=== PATIENT | male | born 1965 | race Hispanic/Latino ===

== ENCOUNTER 2017-03-02 15:06 | Inpatient (IN) | payer MEDICARE, MEDICAID ==
[2017-03-02 15:06] VITALS: BMI 32.5
[2017-03-02] MEDS ORDERED: Sodium Chloride 0.9% 1,000 ML IV STA (15:28)
--- NOTE | 2017-03-02 15:39 | ED PDOC ---
Syncope/Near Syncope/Dizzyness Time Seen by Provider: 03/02/17 15:16 Chief Complaint (Nursing): Syncope Chief Complaint (Provider): syncope History Per: Patient History/Exam Limitations: no limitations Onset/Duration Of Symptoms: Mins (prior to arrival ) Current Symptoms Are (Timing): Still Present Activity At Onset Of Symptoms: Walking Additional Complaint(s): Derek Gutierrez is a 51 year old male, with a previous medical history of bipolar disorder and diabetes, who presents to the ED via EMS after a syncopal episode in front of the court house prior to arrival while walking from the pharmacy to bulk picker his medications. Patient reports to feeling dizzy before syncopal episode but states symptoms spontaneously resolved. Patient was discharged from rehab yesterday for a shoulder injury he sustained resulting from a previous fall. Patient denies any current dizziness, chest pain, headache , nausea, vomiting, diarrhea, abdominal pain, vision changes or focal weakness. PMD: none provided Past Medical History Reviewed: Historical Data, Nursing Documentation, Vital Signs Vital Signs: Last Vital Signs Temp 95.9 F L 03/02/17 15:08 Pulse 125 H 03/02/17 15:08 Resp 16 03/02/17 15:08 BP 77/39 L 03/02/17 15:08 Pulse Ox 98 03/02/17 15:08 - Medical History PMH: Bipolar Disorder, Diabetes Denies: Chronic Kidney Disease - Surgical History Surgical History: No Surg Hx - Family History Family History: States: Unknown Family Hx - Home Medications Home Medications: Ambulatory Orders Medication Instructions Recorded Atorvastatin [Lipitor] 20 mg PO HS 03/02/17 Paliperidone Palmitate [Invega 156 mg Q30D 03/02/17 Sustenna] metFORMIN [glucOPHAGE] 850 mg PO BID 03/02/17 - Allergies Allergies/Adverse Reactions: Allergies Allergy/AdvReac Type Severity Reaction Status Date / Time No Known Allergies Allergy Verified 01/23/17 07:46 Review of Systems ROS Statement: Except As Marked, All Systems Reviewed And Found Negative Eyes: Negative for: Vision Change Cardiovascular: Negative for: Chest Pain Gastrointestinal: Negative for: Nausea, Vomiting Neurological: Positive for: Dizziness. Negative for: Headache Physical Exam - Reviewed Nursing Documentation Reviewed: Yes Vital Signs Reviewed: Yes - Physical Exam Appears: Positive for: Well, Non-toxic, No Acute Distress Head Exam: Positive for: ATRAUMATIC, NORMAL INSPECTION, NORMOCEPHALIC Skin: Positive for: Normal Color, Warm, Dry Eye Exam: Positive for: EOMI, Normal appearance, PERRL ENT: Positive for: Normal ENT Inspection (moist mucous membranes) Neck: Positive for: Normal Cardiovascular/Chest: Positive for: Regular Rate, Rhythm Respiratory: Positive for: Normal Breath Sounds Gastrointestinal/Abdominal: Positive for: Normal Exam, Bowel Sounds, Soft. Negative for: Tenderness Back: Positive for: Normal Inspection. Negative for: L CVA Tenderness, R CVA Tenderness Extremity: Positive for: Normal ROM, Capillary Refill (< 2 seconds ). Negative for: Tenderness, Pedal Edema, Deformity, Swelling Neurologic/Psych: Positive for: Alert, Oriented, Other (strength 5/5 in all extremeties ). Negative for: Motor/Sensory Deficits - Laboratory Results Result Diagrams: 03/02/17 16:30 03/02/17 15:31 - ECG ECG: Positive for: Interpreted By Me, Viewed By Me ECG Rhythm: Positive for: Normal QRS. Negative for: ST/T Changes Rate: 91 (BPM ) O2 Sat by Pulse Oximetry: 98 (RA) Pulse Ox Interpretation: Normal Medical Decision Making Medical Decision Making: Initial Impression: Syncope differentials include hypotensive, anemia, dehydration Initial Plan: * VBG shock panel * CT head w/o contrast * labs * EKG * alcohol serum * urine drug screen * partial thromboplastin time * prothrombin time * IV NS 1,000 ml at 1,000 ml/hr * slip cover sewer cont * accucheck * reevaluation Scribe Attestation: Documented by Kat Gomez, acting as a scribe for Geena Zaragoza MD. Provider Scribe Attestation: All medical record entries made by the Scribe were at my direction and personally dictated by me. I have reviewed the chart and agree that the record accurately reflects my personal performance of the history, physical exam, medical decision making, and the department course for this patient. I have also personally directed, reviewed, and agree with the discharge instructions and disposition. patient's blood pressure stabilized with fluids. there is not evidence of infection. the elevated lactate likely due to volume depletion. Disposition - Clinical Impression Clinical Impression: Syncope and collapse - Patient ED Disposition Is Patient to be Admitted: Yes Doctor Will See Patient In The: Hospital - Disposition Disposition: Transfer of Care Disposition Time: 17:00 Condition: GUARDED - Pt Status Changed To: Hospital Disposition Of: Observation - POA Present On Arrival: Blood Incompatibility
[2017-03-02 16:04] LABS: VENOUS BLOOD GAS BASE EXCESS -4.9 mmol/L (0.0-2.0); VENOUS BLOOD GAS PCO2 39 mmHg (40-60); VENOUS BLOOD PH 7.33 (7.32-7.43)
[2017-03-02 16:05] LABS: ALB/GLOB RATIO 1.3 (1.0-2.1); ALCOHOL SERUM < 10 mg/dl (0-10); ALKALINE PHOSPHATASE 92 U/L (38-126); ALT/SGPT 29 U/L (21-72); AST/SGOT 28 U/L (17-59); BLOOD UREA NITROGEN 17 mg/dl (9-20); CALCIUM 9.6 mg/dL (8.4-10.2); CARBON DIOXIDE 17 mmol/L (22-30); CHLORIDE 100 mmol/L (98-107); GFR AFRICAN-AMERICAN > 60; GLUCOSE,RANDOM 174 mg/dL (75-110); POTASSIUM 3.6 MMOL/L (3.6-5.0); SODIUM 140 mmol/l (132-148)
--- NOTE | 2017-03-02 16:32 | CT ---
PROCEDURE: CT HEAD WITHOUT CONTRAST. HISTORY: dizziness, fainting COMPARISON: None available. TECHNIQUE: Axial computed tomography images were obtained through the head/brain without intravenous contrast. Radiation dose: Total exam DLP = 835.5 mGy-cm. This CT exam was performed using one or more of the following dose reduction techniques: Automated exposure control, adjustment of the mA and/or kV according to patient size, and/or use of iterative reconstruction technique. FINDINGS: HEMORRHAGE: No new parenchymal, subarachnoid or extra-axial hemorrhage. BRAIN: no evidence of large acute infarct. No obvious parenchymal nor extra-axial mass or collection seen on this noncontrast study. No mass effect or edema seen. Moderate generalized volume loss. Mild vascular calcifications both carotid siphons VENTRICLES: Ventricles are enlarged due to moderate generalized volume loss however there is no evidence of obstructive type hydrocephalus. CALVARIUM: There are no acute calvarial fractures. PARANASAL SINUSES: Visualized paranasal air complexes are well-developed and currently well-aerated. MASTOID AIR CELLS: Unremarkable as visualized. No inflammatory changes. OTHER FINDINGS: None. IMPRESSION: No acute intracranial hemorrhage or infarct. Mild-moderate generalized volume loss.
[2017-03-02 16:37] LABS: HEMATOCRIT 36.6 % (35.0-51.0); MEAN CELL VOLUME 88.4 fl (80.0-94.0); MEAN CORPUSCULAR HEMOGLOBIN 29.1 pg (27.0-31.0); MEAN CORPUSCULAR HGB CONC 32.9 g/dL (33.0-37.0); RED CELL DISTRIBUTION WIDTH 14.9 % (11.5-14.5); WHITE BLOOD COUNT 11.8 K/uL (4.8-10.8)
[2017-03-02 18:59] LABS: VENOUS BLOOD GAS BASE EXCESS 1.3 mmol/L (0.0-2.0); VENOUS BLOOD GAS PCO2 40 mmHg (40-60); VENOUS BLOOD PH 7.42 (7.32-7.43)
[2017-03-02] MEDS ORDERED: Pneumococcal 23-Valent Vaccine IM ONE (21:10)
[2017-03-02] MEDS: Insulin Regular 100 units/ml SC SCH (23:04)
[2017-03-03] MEDS: Insulin Regular 100 units/ml SC SCH ×4 (06:53→22:38)
[2017-03-03 07:57] LABS: ALB/GLOB RATIO 1.2 (1.0-2.1); ALKALINE PHOSPHATASE 72 U/L (38-126); ALT/SGPT 30 U/L (21-72); AST/SGOT 27 U/L (17-59); BILIRUBIN,TOTAL 1.4 mg/dl (0.2-1.3); BLOOD UREA NITROGEN 17 mg/dl (9-20); CALCIUM 8.8 mg/dL (8.4-10.2); CARBON DIOXIDE 27 mmol/L (22-30); CHLORIDE 101 mmol/L (98-107); CHOLESTEROL 149 mg/dL (0-199); GFR AFRICAN-AMERICAN > 60; GLUCOSE,RANDOM 93 mg/dL (75-110); POTASSIUM 3.5 MMOL/L (3.6-5.0); SODIUM 139 mmol/l (132-148)
[2017-03-03 08:02] LABS: HEMATOCRIT 34.5 % (35.0-51.0); MEAN CELL VOLUME 88.7 fl (80.0-94.0); MEAN CORPUSCULAR HEMOGLOBIN 29.3 pg (27.0-31.0); MEAN CORPUSCULAR HGB CONC 33.1 g/dL (33.0-37.0); WHITE BLOOD COUNT 6.6 K/uL (4.8-10.8)
[2017-03-03 08:13] LABS: T4 10.1 ug/dl (5.5-11.0)
[2017-03-03 08:26] LABS: THYROID STIMULATING HORMONE 2.67 mIU/ML (0.46-4.68)
[2017-03-03] MEDS: Enoxaparin 40 mg Syringe SC SCH (11:14)
--- NOTE | 2017-03-03 11:20 | HP ---
CHIEF COMPLAINT: Passed out. HISTORY OF PRESENT ILLNESS: This is a 51-year-old male, known case of bipolar disorder, diabetes who felt dizzy and passed out yesterday on the street, so patient was brought to Emergency Room and was admitted for further management. REVIEW OF SYSTEMS: Positive for dizziness and loss of consciousness and passing out. Review of syst ems otherwise is negative for headache, chest pain, shortness of breath, nausea, vomiting, diarrhea, constipation, any new joint or extremity pain. The patient was recently in rehab for right shoulder pain which has improved, but is still present. Review of systems of all other organ systems is unrem arkable. PAST MEDICAL HISTORY: Significant for diabetes and bipolar disorder. PAST SURGICAL HISTORY: Unremarkable. PERSONAL HISTORY: The patient is currently a nonsmoker, nondrinker, no substance abuse. MEDICATIONS: The patient is on atorvastatin, metformin and Invega. ALLERGIES: The patient is not allergic to any medication. FAMILY HISTORY: Noncontributory. PHYSICAL EXAMINATION: GENERAL: Well-built, well-nourished 51-year-old male in no acute distress. VITAL SIGNS: Temperature 98.7, pulse 93, respirations 18, blood pressure 150/81. HEENT: Pupils reacting to light. No JVD, no thyromegaly, no lymphadenopathy. No nystagmus. Normoce phalic, atraumatic skull. HEART: S1, S2 normal, regular. No significant murmur, gallop or rub is heard. LUNGS: Shows good bilateral air entry. No rales or rhonchi. ABDOMEN: Soft, nontender, no organomegaly, no fluid. Bowel sounds are plus. EXTREMITIES: No edema, no calf swelling, no tenderness, no acute ischemia. CENTRAL NERVOUS SYSTEM: The patient is alert, awake, oriented x 3. There is no sign of any acute gr oss focal motor or sensory neurological deficit. DIAGNOSTIC DATA: Available diagnostic data reviewed. Telemetry monitoring does not reveal significa nt arrhythmias. Alcohol is less than 2. Sugar is 174, 78, and 98. SMA-12 is unremarkable. CBC vianney ws WBC 11.8, hemoglobin 12, hematocrit 36, platelets 69. ADMITTING IMPRESSION: Syncope, diabetes, hypertension, elevated cholesterol, overweight, bipolar dis order, thrombocytopenia. PLAN: As ordered. Case and plan discussed with patient. Kartik Eckert MD cc: [id number] TT: 03/03/2017 11:20:20 rn
--- NOTE | 2017-03-03 11:28 | CARD ---
APPROVED REPORT EXAM: Two-dimensional and M-mode echocardiogram with Doppler and color Doppler. Other Information Quality : GoodRhythm : NSR INDICATION Syncope ; Hypotension 2D DIMENSIONS RVDd3.91 (2.9-3.5cm)Left Atrium (2D)3.24 (1.6-4.0cm) IVSd1.26 (0.7-1.1cm)Aortic Root (2D)3.30 (2.0-3.7cm) LVDd4.72 (3.9-5.9cm)PWd0.83 (0.7-1.1cm) IVSs1.61 (0.8-1.2cm)LVDs2.63 (2.5-4.0cm) FS (%) 44.2 %PWs1.73 (0.8-1.2cm) M-Mode DIMENSIONS Left Atrium (MM)3.34 (2.5-4.0cm)IVSd1.22 (0.7-1.1cm) Aortic Root3.24 (2.2-3.7cm)LVDd4.40 (4.0-5.6cm) Aortic Cusp Exc.2.58 (1.5-2.0cm)PWd1.36 (0.7-1.1cm) IVSs1.89 cmFS (%) 62 % LVDs1.65 (2.0-3.8cm)PWs2.22 cm LVEF (%)62 (>50%) Mitral Valve E/A ratio0.0 TDI Lateral E' Peak V16.13cm/sMedial E' Peak V7.14cm/sE/Lateral E'0.0 E/Medial E'0.0 Tricuspid Valve RAP [id number] LEFT VENTRICLE The left ventricle is normal size. There is normal left ventricular wall thickness. The left ventricular function is normal. The left ventricular ejection fraction is - 75%. There is normal LV segmental wall motion. Transmitral Doppler flow pattern is Grade I-abnormal relaxation pattern. No left ventricle thrombus noted on this study. There is no ventricular septal defect visualized. There is no left ventricular aneurysm. There is no mass noted in the left ventricle. RIGHT VENTRICLE The right ventricle is normal size. There is normal right ventricular wall thickness. The right ventricular systolic function is normal. ATRIA The left atrium size is normal. There is no thrombus suspected in the left atrium. The right atrium size is normal. The interatrial septum is intact with no evidence for an atrial septal defect. AORTIC VALVE The aortic valve is normal in structure and function. No aortic regurgitation is present. There is no aortic valvular stenosis. MITRAL VALVE The mitral valve is normal in structure and function. There is no evidence of mitral valve prolapse. There is no mitral valve stenosis. Mitral regurgitation is trace. TRICUSPID VALVE The tricuspid valve is normal in structure and function. There is trace tricuspid regurgitation. There is no tricuspid valve prolapse or vegetation. There is no tricuspid valve stenosis. PULMONIC VALVE The pulmonary valve is normal in structure and function. There is no pulmonic valvular regurgitation. GREAT VESSELS The aortic root is normal in size. The IVC is normal in size and collapses >50% with inspiration. PERICARDIAL EFFUSION The pericardium appears normal. There is no pleural effusion. <Conclusion> The left ventricle is normal in size and wall thickness. The left ventricular function is normal. The left ventricular ejection fraction is - 75%. The left atrium, right ventricle and right atrium are normal in size. The mitral, aortic and tricuspid valves are normal. There is trace mitral regurgitation and trace tricuspid regurgitation.
--- NOTE | 2017-03-03 11:36 | CARD ---
APPROVED REPORT EKG Measurement Heart [id number] <Conclusion> Normal sinus rhythm Prolonged QT Abnormal ECG
--- NOTE | 2017-03-03 12:49 | CP.PCM.CON ---
History of Present Illness - History of Present Illness History of Present Illness: I was aslked to see patient due to syncope. The patient states he was walking doen the streeest when he felt lightheaded and passsed out. The patient states symptoms have occurred frequnetly. The pateint was admitted to [facility] one month ago for the same symptoms. The patient had a cardiac workup including stress test which was negative for ischemia. A tilt table was positive a per note written by Dr. Diaz. He was started on Florinef and Midodrine, althought he states he did not take once he left the hospital. Review of Systems - Constitutional Constitutional: absent: As Per HPI, Anorexia, Chills, Daytime Sleepiness, Excessive Sweating, Fatigue, Fever, Frequent Falls, Headache, Increased Appetite , Lethargy, Malaise, Night Sweats, Snoring, Sleep Apnea, Weight Gain, Weight Loss, Weakness, Other - EENT Eyes: absent: As Per HPI, Blind Spots, Blurred Vision, Change in Vision, Decreased Night Vision, Diplopia, Discharge, Dry Eye, Exophthalmos, Floaters, Irritation, Itchy Eyes, Loss of Peripheral Vision, Pain, Photophobia, Requires Corrective Lenses, Sees Flashes, Spots in Vision, Tunnel Vision, Other Visual Disturbances, Loss of Vision, Other Ears: absent: As Per HPI, Decreased Hearing, Ear Discharge, Ear Pain, Tinnitus, Abnormal Hearing, Disequilibrium, Dizziness, Other Nose/Mouth/Throat: absent: As Per HPI, Epistaxis, Nasal Congestion, Nasal Discharge, Nasal Obstruction, Nasal Trauma, Nose Pain, Post Nasal Drip, Sinus Pain, Sinus Pressure, Bleeding Gums, Change in Voice, Dental Pain, Dry Mouth, Dysphagia, Halitosis, Hoarsness, Lip Swelling, Mouth Lesions, Mouth Pain, Odynophagia, Sore Throat, Throat Swelling, Tongue Swelling, Facial Pain, Neck Pain, Neck Mass, Other - Cardiovascular Cardiovascular: Syncope - Respiratory Respiratory: absent: As Per HPI, Cough, Dyspnea, Hemoptysis, Dyspnea on Exertion , Wheezing, Snoring, Stridor, Pain on Inspiration, Chest Congestion, Excessive Mucous Production, Change in Mucous Color, Pain with Coughing, Other - Gastrointestinal Gastrointestinal: absent: As Per HPI, Abdominal Pain, Belching, Bloating, Change in Bowel Habits, Change in Stool Character, Coffee Ground Emesis, Constipation, Cramping, Diarrhea, Dyspepsia, Dysphagia, Early Satiety, Excessive Flatus, Fecal Incontinence, Heartburn, Hematemesis, Hematochezia, Loose Stools, Melena, Nausea, Odynophagia, Temesmus, Vomiting, Other - Genitourinary Genitourinary: absent: As Per HPI, Change in Urinary Stream, Difficulty Urinating, Dysuria, Flank Pain, Hematuria, Pyuria, Nocturia, Urinary Incontinence, Urinary Frequency, Urinary Hesitance, Urinary Urgency, Voiding Freq/Small Amts, Freq UTI, Hx Renal/Bladder Calculi, Hx /Renal Surgery, Bladder Distension, Other - Musculoskeletal Musculoskeletal: absent: As Per HPI, Abnormal Gait, Arthralgias, Atrophy, Back Pain, Deformity, Joint Swelling, Limited Range of Motion, Loss of Height, Muscle Cramps, Muscle Weakness, Myalgias, Neck Pain, Numbness, Radiating Pain into Limb, Stiffness, Tingling, Other - Integumentary Integumentary: absent: As Per HPI, Acne, Alopecia, Bleeding Lesions, Change in Hair, Change in Nails, Change in Pigmentation, Changing Lesions, Dry Skin, Erythema, Furuncle, Hirsutism, Lesions, New Lesions, Non-Healing Lesions, Photosensitivity, Pruritus, Rash, Skin Pain, Skin Ulcer, Sores, Striae, Swelling , Unusual Bruising, Wounds, Jaundice, Other - Neurological Neurological: absent: As Per HPI, Abnormal Gait, Abnormal Hearing, Abnormal Movements, Abnormal Speech, Behavioral Changes, Burning Sensations, Confusion, Convulsions, Disequilibrium, Dizziness, Numbness, Focal Weakness, Frequent Falls , Headaches, Lack of Coordination, Loss of Vision, Memory Loss, Paresthesias, Radicular Pain, Restless Legs, Sensory Deficit, Syncope, Tingling, Tremor, Vertigo, Weakness, Other Visual Disturbances, Other - Psychiatric Psychiatric: absent: As Per HPI, Abnormal Sleep Pattern, Anhedonia, Anxiety, Auditory Hallucinations, Behavioral Changes, Change in Appetite, Change in Libido, Confusion, Depression, Difficulty Concentrating, Hallucinations, Homicidal Ideation, Hopelessness, Irritability, Memory Loss, Mood Swings, Panic Attacks, Paranoia, Suicidal Ideation, Visual Hallucinations, Tactile Hallucinations, Other - Endocrine Endocrine: absent: As Per HPI, Change in Body Appearance, Change in Libido, Cold Intolorance, Deepening of Voice, Excessive Sweating, Fatigue, Flushing, Heat Intolorance, Increase in Ring/Shoe/Hat Size, Palpitations, Polydipsia, Polyphagia, Polyuria, Other - Hematologic/Lymphatic Hematologic: absent: As Per HPI, Easy Bleeding, Easy Bruising, Lymphadenopathy, Other Past Patient History - Infectious Disease Hx of Infectious Diseases: None - Past Medical History & Family History Past Medical History?: Yes - Past Social History Smoking Status: Former Smoker - CARDIAC Hx Cardiac Disorders: Yes Hx Hypercholesterolemia: Yes - PULMONARY Hx Respiratory Disorders: No - NEUROLOGICAL Hx Neurological Disorder: No - HEENT Hx HEENT Problems: No - RENAL Hx Chronic Kidney Disease: No - ENDOCRINE/METABOLIC Hx Diabetes Mellitus Type 2: Yes - HEMATOLOGICAL/ONCOLOGICAL Hx Blood Disorders: Yes Hx AIDS: No Hx Blood Transfusions: Yes Hx Blood Transfusion Reaction: No Hx Human Immunodeficiency Virus (HIV): No - INTEGUMENTARY Hx Dermatological Problems: No - MUSCULOSKELETAL/RHEUMATOLOGICAL Hx Falls: Yes - GASTROINTESTINAL Hx Constipation: Yes - GENITOURINARY/GYNECOLOGICAL Hx Genitourinary Disorders: No - PSYCHIATRIC Hx Bipolar Disorder: Yes Hx Substance Use: No - SURGICAL HISTORY Hx Surgeries: Yes (tonsillectomy) - ANESTHESIA Hx Anesthesia: Yes Hx Anesthesia Reactions: No Hx Malignant Hyperthermia: No Meds Allergies/Adverse Reactions: Allergies Allergy/AdvReac Type Severity Reaction Status Date / Time No Known Allergies Allergy Verified 03/02/17 20:03 - Medications Medications: Current Medications Atorvastatin Calcium (Lipitor) 20 mg PO HS [facility] Last Admin: 03/02/17 23:04 Dose: 20 mg Enoxaparin Sodium (Lovenox) 40 mg SC DAILY [facility] PRN Reason: Protocol Last Admin: 03/03/17 11:14 Dose: 40 mg Fludrocortisone Acetate (Florinef) 0.1 mg PO DAILY [facility] Insulin Human Regular (Humulin R) 0 units SC [facility] PRN Reason: Protocol Last Admin: 03/03/17 06:53 Dose: Not Given Metformin HCl (Glucophage) 850 mg PO BID [facility] Last Admin: 03/03/17 11:13 Dose: 850 mg Ramipril (Altace) 2.5 mg PO DAILY [facility] Last Admin: 03/03/17 11:12 Dose: 2.5 mg Physical Exam - Constitutional Appears: Non-toxic - Head Exam Head Exam: NORMAL INSPECTION - Eye Exam Eye Exam: Normal appearance - ENT Exam ENT Exam: Mucous Membranes Moist - Neck Exam Neck exam: Positive for: Full Rom - Respiratory Exam Respiratory Exam: Decreased Breath Sounds - Cardiovascular Exam Cardiovascular Exam: REGULAR RHYTHM - GI/Abdominal Exam GI & Abdominal Exam: Normal Bowel Sounds - Rectal Exam Rectal Exam: Deferred - Extremities Exam Extremities exam: Positive for: pedal edema - Back Exam Back exam: NORMAL INSPECTION - Neurological Exam Neurological exam: Alert, Oriented x3 - Psychiatric Exam Psychiatric exam: Normal Affect - Skin Skin Exam: Normal Color Results - Vital Signs Recent Vital Signs: Last Vital Signs Temp 98.4 F 03/03/17 12:00 Pulse 91 H 03/03/17 12:00 Resp 18 03/03/17 12:00 BP 143/78 03/03/17 12:00 Pulse Ox 98 03/03/17 12:00 - Labs Result Diagrams: 03/03/17 06:00 03/03/17 06:00 Labs: Laboratory Results - last 24 hr 03/02/17 03/02/17 03/03/17 18:36 21:27 05:25 WBC RBC Hgb Hct MCV MCH MCHC RDW Plt Count pO2 63 H VBG pH 7.42 VBG pCO2 40 VBG HCO3 25.8 VBG Total CO2 27.1 VBG O2 Sat (Calc) 95.2 H VBG Base Excess 1.3 VBG Potassium 3.8 Sodium 139.0 Chloride 104.0 Glucose 108 Lactate 0.9 FiO2 21.0 Potassium Carbon Dioxide Anion Gap BUN Creatinine Est GFR ( Amer) Est GFR (Non-Af Amer) POC Glucose (mg/dL) 78 98 Random Glucose Calcium Total Bilirubin AST ALT Alkaline Phosphatase Total Protein Albumin Globulin Albumin/Globulin Ratio Triglycerides Cholesterol LDL Cholesterol Direct HDL Cholesterol Vitamin B12 Thyroxine (T4) Total T3 TSH 3rd Generation Venous Blood Potassium 3.8 Urine Opiates Screen Urine Methadone Screen Ur Barbiturates Screen Ur Phencyclidine Scrn Ur Amphetamines Screen U Benzodiazepines Scrn U Oth Cocaine Metabols U Cannabinoids Screen 03/03/17 03/03/17 03/03/17 06:00 06:00 08:00 WBC 6.6 RBC 3.89 L Hgb 11.4 L Hct 34.5 L MCV 88.7 MCH 29.3 MCHC 33.1 RDW 15.0 H Plt Count 79 L pO2 VBG pH VBG pCO2 VBG HCO3 VBG Total CO2 VBG O2 Sat (Calc) VBG Base Excess VBG Potassium Sodium 139 Chloride 101 Glucose Lactate FiO2 Potassium 3.5 L Carbon Dioxide 27 Anion Gap 15 BUN 17 Creatinine 1.1 Est GFR ( Amer) > 60 Est GFR (Non-Af Amer) > 60 POC Glucose (mg/dL) Random Glucose 93 Calcium 8.8 Total Bilirubin 1.4 H AST 27 ALT 30 Alkaline Phosphatase 72 Total Protein 7.0 Albumin 3.8 Globulin 3.2 Albumin/Globulin Ratio 1.2 Triglycerides 116 Cholesterol 149 LDL Cholesterol Direct 97 HDL Cholesterol 29 L Vitamin B12 323 Thyroxine (T4) 10.1 Total T3 0.723 L TSH 3rd Generation 2.67 Venous Blood Potassium Urine Opiates Screen Negative Urine Methadone Screen Negative Ur Barbiturates Screen Negative Ur Phencyclidine Scrn Negative Ur Amphetamines Screen Negative U Benzodiazepines Scrn Negative U Oth Cocaine Metabols Negative U Cannabinoids Screen Negative 03/03/17 03/03/17 09:30 12:10 WBC RBC Hgb Hct MCV MCH MCHC RDW Plt Count pO2 VBG pH VBG pCO2 VBG HCO3 VBG Total CO2 VBG O2 Sat (Calc) VBG Base Excess VBG Potassium Sodium Chloride Glucose Lactate FiO2 Potassium Carbon Dioxide Anion Gap BUN Creatinine Est GFR ( Amer) Est GFR (Non-Af Amer) POC Glucose (mg/dL) 118 H Random Glucose Calcium Total Bilirubin AST ALT Alkaline Phosphatase Total Protein Albumin Globulin Albumin/Globulin Ratio Triglycerides Cholesterol LDL Cholesterol Direct HDL Cholesterol Vitamin B12 290 Thyroxine (T4) Total T3 TSH 3rd Generation Venous Blood Potassium Urine Opiates Screen Urine Methadone Screen Ur Barbiturates Screen Ur Phencyclidine Scrn Ur Amphetamines Screen U Benzodiazepines Scrn U Oth Cocaine Metabols U Cannabinoids Screen - EKG Data EKG Interpreted by: Myself EKG shows normal: Sinus rhythm Assessment & Plan (1) Orthostatic hypotension Assessment and Plan: will resart Florinef. Hold on midodrine for the moment as patient is hypertensive. Status: Acute (2) Syncope and collapse Assessment and Plan: due to orthostasis Status: Acute (3) Hypertension Assessment and Plan: monitor blood pressure on florinef Status: Acute
--- NOTE | 2017-03-03 16:06 | CP.PCM.CON ---
History of Present Illness - History of Present Illness History of Present Illness: Mr. Gutierrez is a 51-year-old man with a past medical history of diabetes, hypertension, previously diagnosed orthostatic hypotension, who has had multiple syncopal episodes in the past and falls due to orthostasis, who states that he was walking down the street yesterday, when he suddenly became light headaed, vision was going dark, and he felt that he would pass out. He fell to the floor, but did not lose consciousness. He injured his left arm, but did not sustain any other significant injuries this time. However, last time he fell, he lost consciousness and fractured his right shoulder. He has weakness of the right arm as a result of that previous injury. The patient was diagnosed with orthostatic hypotension after tilt table testing and was supposed to take Florinef and midodrine, but he did not obtain these prescriptions. He says that he was never given the medication. Today, the patient denies headache, visual changes, difficulty with speech, chest pain, weakness (other than the right arm), sensory changes or other associated symptoms. Review of Systems - Review of Systems All systems: reviewed and no additional remarkable complaints except Past Patient History - Infectious Disease Hx of Infectious Diseases: None - Past Medical History & Family History Past Medical History?: Yes - Past Social History Smoking Status: Former Smoker - CARDIAC Hx Cardiac Disorders: Yes Hx Hypercholesterolemia: Yes - PULMONARY Hx Respiratory Disorders: No - NEUROLOGICAL Hx Neurological Disorder: No - HEENT Hx HEENT Problems: No - RENAL Hx Chronic Kidney Disease: No - ENDOCRINE/METABOLIC Hx Diabetes Mellitus Type 2: Yes - HEMATOLOGICAL/ONCOLOGICAL Hx Blood Disorders: Yes Hx AIDS: No Hx Blood Transfusions: Yes Hx Blood Transfusion Reaction: No Hx Human Immunodeficiency Virus (HIV): No - INTEGUMENTARY Hx Dermatological Problems: No - MUSCULOSKELETAL/RHEUMATOLOGICAL Hx Falls: Yes - GASTROINTESTINAL Hx Constipation: Yes - GENITOURINARY/GYNECOLOGICAL Hx Genitourinary Disorders: No - PSYCHIATRIC Hx Bipolar Disorder: Yes Hx Substance Use: No - SURGICAL HISTORY Hx Surgeries: Yes (tonsillectomy) - ANESTHESIA Hx Anesthesia: Yes Hx Anesthesia Reactions: No Hx Malignant Hyperthermia: No Meds Allergies/Adverse Reactions: Allergies Allergy/AdvReac Type Severity Reaction Status Date / Time No Known Allergies Allergy Verified 03/02/17 20:03 - Medications Medications: Current Medications Atorvastatin Calcium (Lipitor) 20 mg PO HS [facility] Last Admin: 03/02/17 23:04 Dose: 20 mg Enoxaparin Sodium (Lovenox) 40 mg SC DAILY [facility] PRN Reason: Protocol Last Admin: 03/03/17 11:14 Dose: 40 mg Fludrocortisone Acetate (Florinef) 0.1 mg PO DAILY [facility] Insulin Human Regular (Humulin R) 0 units SC ACHS [facility] PRN Reason: Protocol Last Admin: 03/03/17 15:43 Dose: Not Given Metformin HCl (Glucophage) 850 mg PO BID [facility] Last Admin: 03/03/17 11:13 Dose: 850 mg Ramipril (Altace) 2.5 mg PO DAILY [facility] Last Admin: 03/03/17 11:12 Dose: 2.5 mg Physical Exam - Constitutional Appears: Well - Head Exam Head Exam: ATRAUMATIC, NORMAL INSPECTION, NORMOCEPHALIC - Eye Exam Eye Exam: EOMI, Normal appearance, PERRL Pupil Exam: NORMAL ACCOMODATION, PERRL - ENT Exam ENT Exam: Mucous Membranes Moist, Normal Exam - Neck Exam Neck exam: Positive for: Normal Inspection - Respiratory Exam Respiratory Exam: Clear to Auscultation Bilateral, NORMAL BREATHING PATTERN - Cardiovascular Exam Cardiovascular Exam: REGULAR RHYTHM, +S1, +S2 - GI/Abdominal Exam GI & Abdominal Exam: Bruit - Rectal Exam Rectal Exam: Deferred - Extremities Exam Extremities exam: Positive for: joint swelling, normal inspection, tenderness - Back Exam Back exam: NORMAL INSPECTION - Neurological Exam Neurological exam: Alert, CN II-XII Intact, Normal Gait, Oriented x3, Reflexes Normal - Expanded Neurological Exam Expanded Patient oriented to: person, place, time Cranial nerves: EOM's Intact: Normal, Nystagmus: Normal Cerebellar Function: Finger to Nose: Abnormal Right (due to fracture), Heel to Askew: Normal Upper motor neuron: Babinski Sign: Normal Sensory exam: Lower Extremity 2 Point Discrimination: Normal, Lower Extremity Light Touch: Normal, Lower Extremity Pin Prick: Normal, Lower Extremity Temperature: Normal, Upper Extremity 2 Point Discrimination: Normal, Upper Extremity Light Touch: Normal, Upper Extremity Pin Prick: Normal, Upper Extremity Temperature: Normal Neuro motor strength exam: Left Upper Extremity: 5, Right Upper Extremity: 2/1, Left Lower Extremity: 5, Right Lower Extremity: 5 DTR: Achilles Tendon Left: 2+, Achilles Tendon Right: 2+, Bicep Left: 2+, Bicep Right: 2+, Brachioradialis Left: 2+, Brachioradialis Right: 2+, Patellar Left: 2 +, Patellar Right: 2+, Tricep Left: 2+, Tricep Right: 2+ - Psychiatric Exam Psychiatric exam: Normal Affect, Normal Mood - Skin Skin Exam: Abrasion, Dry, Intact, Petechiae, Warm Results - Vital Signs Recent Vital Signs: Last Vital Signs Temp 98.3 F 03/03/17 15:28 Pulse 82 03/03/17 15:28 Resp 18 03/03/17 15:28 BP 136/81 03/03/17 15:28 Pulse Ox 98 03/03/17 15:28 - Labs Result Diagrams: 03/03/17 06:00 03/03/17 06:00 Labs: Laboratory Results - last 24 hr 03/02/17 03/02/17 03/03/17 18:36 21:27 05:25 WBC RBC Hgb Hct MCV MCH MCHC RDW Plt Count pO2 63 H VBG pH 7.42 VBG pCO2 40 VBG HCO3 25.8 VBG Total CO2 27.1 VBG O2 Sat (Calc) 95.2 H VBG Base Excess 1.3 VBG Potassium 3.8 Sodium 139.0 Chloride 104.0 Glucose 108 Lactate 0.9 FiO2 21.0 Potassium Carbon Dioxide Anion Gap BUN Creatinine Est GFR ( Amer) Est GFR (Non-Af Amer) POC Glucose (mg/dL) 78 98 Random Glucose Calcium Total Bilirubin AST ALT Alkaline Phosphatase Total Protein Albumin Globulin Albumin/Globulin Ratio Triglycerides Cholesterol LDL Cholesterol Direct HDL Cholesterol Vitamin B12 Thyroxine (T4) Total T3 TSH 3rd Generation Venous Blood Potassium 3.8 Urine Opiates Screen Urine Methadone Screen Ur Barbiturates Screen Ur Phencyclidine Scrn Ur Amphetamines Screen U Benzodiazepines Scrn U Oth Cocaine Metabols U Cannabinoids Screen 03/03/17 03/03/17 03/03/17 06:00 06:00 08:00 WBC 6.6 RBC 3.89 L Hgb 11.4 L Hct 34.5 L MCV 88.7 MCH 29.3 MCHC 33.1 RDW 15.0 H Plt Count 79 L pO2 VBG pH VBG pCO2 VBG HCO3 VBG Total CO2 VBG O2 Sat (Calc) VBG Base Excess VBG Potassium Sodium 139 Chloride 101 Glucose Lactate FiO2 Potassium 3.5 L Carbon Dioxide 27 Anion Gap 15 BUN 17 Creatinine 1.1 Est GFR ( Amer) > 60 Est GFR (Non-Af Amer) > 60 POC Glucose (mg/dL) Random Glucose 93 Calcium 8.8 Total Bilirubin 1.4 H AST 27 ALT 30 Alkaline Phosphatase 72 Total Protein 7.0 Albumin 3.8 Globulin 3.2 Albumin/Globulin Ratio 1.2 Triglycerides 116 Cholesterol 149 LDL Cholesterol Direct 97 HDL Cholesterol 29 L Vitamin B12 323 Thyroxine (T4) 10.1 Total T3 0.723 L TSH 3rd Generation 2.67 Venous Blood Potassium Urine Opiates Screen Negative Urine Methadone Screen Negative Ur Barbiturates Screen Negative Ur Phencyclidine Scrn Negative Ur Amphetamines Screen Negative U Benzodiazepines Scrn Negative U Oth Cocaine Metabols Negative U Cannabinoids Screen Negative 03/03/17 03/03/17 09:30 12:10 WBC RBC Hgb Hct MCV MCH MCHC RDW Plt Count pO2 VBG pH VBG pCO2 VBG HCO3 VBG Total CO2 VBG O2 Sat (Calc) VBG Base Excess VBG Potassium Sodium Chloride Glucose Lactate FiO2 Potassium Carbon Dioxide Anion Gap BUN Creatinine Est GFR ( Amer) Est GFR (Non-Af Amer) POC Glucose (mg/dL) 118 H Random Glucose Calcium Total Bilirubin AST ALT Alkaline Phosphatase Total Protein Albumin Globulin Albumin/Globulin Ratio Triglycerides Cholesterol LDL Cholesterol Direct HDL Cholesterol Vitamin B12 290 Thyroxine (T4) Total T3 TSH 3rd Generation Venous Blood Potassium Urine Opiates Screen Urine Methadone Screen Ur Barbiturates Screen Ur Phencyclidine Scrn Ur Amphetamines Screen U Benzodiazepines Scrn U Oth Cocaine Metabols U Cannabinoids Screen - Imaging and Cardiology CT scan - head Status: Image reviewed by me, Report reviewed by me (No acute findings. ) Assessment & Plan - Assessment and Plan (Free Text) Assessment: Likely orthostatic hypotension causing decreased cerebral perfusion and pre- syncope. I recommend continuing Florinef and starting midodrine as needed. He was instructed to increase water intake, and continue precautions during changing positions. PT/OT is recommended. Control serum glucose and other risk factors with life-style modification and medications. Thank you for this consultation.
[2017-03-04] MEDS: Insulin Regular 100 units/ml SC SCH ×4 (06:52→21:46)
[2017-03-04 08:32] LABS: HEMATOCRIT 35.7 % (35.0-51.0); MEAN CELL VOLUME 87.3 fl (80.0-94.0); MEAN CORPUSCULAR HEMOGLOBIN 29.3 pg (27.0-31.0); MEAN CORPUSCULAR HGB CONC 33.5 g/dL (33.0-37.0); RED CELL DISTRIBUTION WIDTH 15.2 % (11.5-14.5)
--- NOTE | 2017-03-04 08:32 | PN ---
DATE: 03/04/2017 The patient is seen and examined. Interim events noted. Consults noted and appreciated. Cardiology and neurology consult and intervention noted and appreciated. The patient remains in progressive ca re unit on telemetry monitoring. Still complains of dizziness on standing up. PHYSICAL EXAMINATION: GENERAL: The patient is in no acute distress. VITAL SIGNS: Stable. HEART: S1, S2 normal, regular. LUNGS: Good bilateral air exchange. ABDOMEN: Soft, nontender. EXTREMITIES: No edema, no calf swelling, no tenderness. No acute ischemia. CENTRAL NERVOUS SYSTEM: Essentially unchanged. DIAGNOSTIC DATA: Available diagnostic data reviewed. Telemetry monitoring does not reveal significa nt arrhythmias. Overall, patient's general medical condition is stable. The patient probably has orthostatic hyperte nsion. Case discussed with the patient in detail and the need for medication ____. PLAN: As ordered. Kartik Eckert MD cc: [id number] TT: 03/04/2017 08:31:50 Confirmation # [id number] Dictation # [id number] [email or web address]
[2017-03-04 08:38] LABS: ALB/GLOB RATIO 1.2 (1.0-2.1); ALKALINE PHOSPHATASE 71 U/L (38-126); ALT/SGPT 28 U/L (21-72); AST/SGOT 23 U/L (17-59); BILIRUBIN,TOTAL 1.2 mg/dl (0.2-1.3); BLOOD UREA NITROGEN 15 mg/dl (9-20); CARBON DIOXIDE 28 mmol/L (22-30); CHLORIDE 102 mmol/L (98-107); GFR AFRICAN-AMERICAN > 60; GLUCOSE,RANDOM 104 mg/dL (75-110); POTASSIUM 3.5 MMOL/L (3.6-5.0); SODIUM 139 mmol/l (132-148)
[2017-03-04] MEDS: Enoxaparin 40 mg Syringe SC SCH (09:07)
--- NOTE | 2017-03-04 10:09 | CP.PCM.PN ---
Subjective - Date & Time of Evaluation Date of Evaluation: 03/04/17 Time of Evaluation: 09:50 - Subjective Subjective: patient has less dizziness today. Objective - Vital Signs/Intake and Output Vital Signs (last 24 hours): Temp Pulse Resp BP Pulse Ox 98.0 F 96 H 16 116/72 95 03/04/17 05:09 03/04/17 05:09 03/04/17 05:09 03/04/17 09:06 03/04/17 05:09 - Medications Medications: Current Medications Atorvastatin Calcium (Lipitor) 20 mg PO HS [facility] Last Admin: 03/03/17 22:39 Dose: 20 mg Enoxaparin Sodium (Lovenox) 40 mg SC DAILY [facility] PRN Reason: Protocol Last Admin: 03/04/17 09:07 Dose: 40 mg Fludrocortisone Acetate (Florinef) 0.1 mg PO DAILY [facility] Last Admin: 03/04/17 09:06 Dose: 0.1 mg Insulin Human Regular (Humulin R) 0 units SC [facility] PRN Reason: Protocol Last Admin: 03/04/17 06:52 Dose: Not Given Metformin HCl (Glucophage) 850 mg PO BID [facility] Last Admin: 03/04/17 10:04 Dose: 850 mg Ramipril (Altace) 2.5 mg PO DAILY [facility] Last Admin: 03/04/17 09:06 Dose: 2.5 mg - Labs Labs: 03/04/17 06:00 03/04/17 06:00 PT 11.4 SECONDS (9.6-11.2) H 03/02/17 15:31 INR 1.10 (0.92-1.08) H 03/02/17 15:31 APTT 25.0 SECONDS (23.3-32.5) 03/02/17 15:31 - Constitutional Appears: Non-toxic - Head Exam Head Exam: NORMAL INSPECTION - Eye Exam Eye Exam: Normal appearance - ENT Exam ENT Exam: Mucous Membranes Moist - Neck Exam Neck Exam: Full ROM - Respiratory Exam Respiratory Exam: Decreased Breath Sounds - Cardiovascular Exam Cardiovascular Exam: REGULAR RHYTHM - GI/Abdominal Exam GI & Abdominal Exam: Normal Bowel Sounds - Rectal Exam Rectal Exam: Deferred - Extremities Exam Extremities Exam: absent: Pedal Edema - Back Exam Back Exam: NORMAL INSPECTION - Neurological Exam Neurological Exam: Alert - Psychiatric Exam Psychiatric exam: Normal Affect - Skin Skin Exam: Normal Color Assessment and Plan (1) Orthostatic hypotension Assessment & Plan: started florinef Status: Acute (2) Syncope and collapse Assessment & Plan: due to orthostasis. negative cardiac workup for sichemia. positive tilt table test Status: Acute (3) Hypertension Assessment & Plan: controlled at the moment Status: Acute
[2017-03-05] MEDS: Insulin Regular 100 units/ml SC SCH ×4 (07:46→21:30)
--- NOTE | 2017-03-05 08:06 | PN ---
DATE: 03/05/2017 The patient seen and examined. Interim events noted. The patient remains in progressive care unit o n telemetry monitoring. The patient still did not attempt to walk around after starting medication. Denies any chest pain, shortness of breath, dizziness while lying in bed. PHYSICAL EXAMINATION: GENERAL: The patient is in no acute distress. VITAL SIGNS: Stable. HEART: S1, S2 normal, regular. LUNGS: Good bilateral air entry. ABDOMEN: Soft, nontender. EXTREMITIES: No edema, no calf swelling, no tenderness, no acute ischemia. CENTRAL NERVOUS SYSTEM: Essentially unchanged. DIAGNOSTIC DATA: Available diagnostic data reviewed. Overall, patient's general medical condition is stable. PLAN: As ordered. Kartik Eckert MD cc: [id number] TT: 03/05/2017 08:06:35 Confirmation # [id number] Dictation # [id number] [email or web address]
[2017-03-05] MEDS: Enoxaparin 40 mg Syringe SC SCH (09:11)
--- NOTE | 2017-03-05 18:31 | CP.PCM.PN ---
Subjective - Date & Time of Evaluation Date of Evaluation: 03/05/17 Time of Evaluation: 18:15 - Subjective Subjective: patient has less dizziness today. Objective - Vital Signs/Intake and Output Vital Signs (last 24 hours): Temp Pulse Resp BP Pulse Ox 98.1 F 88 20 105/70 96 03/05/17 15:51 03/05/17 15:51 03/05/17 15:51 03/05/17 15:51 03/05/17 15:51 - Medications Medications: Current Medications Atorvastatin Calcium (Lipitor) 20 mg PO HS [facility] Last Admin: 03/04/17 22:02 Dose: 20 mg Enoxaparin Sodium (Lovenox) 40 mg SC DAILY [facility] PRN Reason: Protocol Last Admin: 03/05/17 09:11 Dose: 40 mg Fludrocortisone Acetate (Florinef) 0.1 mg PO DAILY [facility] Last Admin: 03/05/17 09:12 Dose: 0.1 mg Insulin Human Regular (Humulin R) 0 units SC ACHS [facility] PRN Reason: Protocol Last Admin: 03/05/17 16:17 Dose: Not Given Metformin HCl (Glucophage) 850 mg PO BID [facility] Last Admin: 03/05/17 16:17 Dose: 850 mg Ramipril (Altace) 2.5 mg PO DAILY [facility] Last Admin: 03/05/17 09:12 Dose: 2.5 mg - Labs Labs: PT 11.4 SECONDS (9.6-11.2) H 03/02/17 15:31 INR 1.10 (0.92-1.08) H 03/02/17 15:31 APTT 25.0 SECONDS (23.3-32.5) 03/02/17 15:31 - Constitutional Appears: Non-toxic - Head Exam Head Exam: NORMAL INSPECTION - Eye Exam Eye Exam: Normal appearance - ENT Exam ENT Exam: Mucous Membranes Moist - Neck Exam Neck Exam: Full ROM - Cardiovascular Exam Cardiovascular Exam: REGULAR RHYTHM - GI/Abdominal Exam GI & Abdominal Exam: Normal Bowel Sounds - Rectal Exam Rectal Exam: Deferred - Extremities Exam Extremities Exam: Pedal Edema - Back Exam Back Exam: NORMAL INSPECTION - Neurological Exam Neurological Exam: Alert - Psychiatric Exam Psychiatric exam: Normal Affect - Skin Skin Exam: Normal Color Assessment and Plan (1) Orthostatic hypotension Assessment & Plan: on florinef Status: Acute (2) Syncope and collapse Status: Acute (3) Hypertension Assessment & Plan: well controlled Status: Acute
[2017-03-05 23:56] VITALS: RESP 18
[2017-03-06] MEDS: Enoxaparin 40 mg Syringe SC SCH (09:23)
[2017-03-06] MEDS: Insulin Regular 100 units/ml SC SCH ×2 (09:23→12:09)
--- NOTE | 2017-03-06 11:42 | CP.PCM.DIS ---
Provider - Provider Date of Admission: 03/05/17 10:37 Attending physician: Kartik Eckert MD Time Spent in preparation of Discharge (in minutes): 20 Diagnosis - Discharge Diagnosis (1) Pre-syncope Status: Acute (2) Hypertension Status: Acute (3) Orthostatic hypotension Status: Acute Hospital Course - Lab Results Lab Results: Most Recent Lab Values WBC 6.0 K/uL (4.8-10.8) 03/04/17 06:00 RBC 4.08 Mil/uL (4.40-5.90) L 03/04/17 06:00 Hgb 11.9 g/dL (12.0-18.0) L 03/04/17 06:00 Hct 35.7 % (35.0-51.0) 03/04/17 06:00 MCV 87.3 fl (80.0-94.0) 03/04/17 06:00 MCH 29.3 pg (27.0-31.0) 03/04/17 06:00 MCHC 33.5 g/dL (33.0-37.0) 03/04/17 06:00 RDW 15.2 % (11.5-14.5) H 03/04/17 06:00 Plt Count 83 K/uL (130-400) L 03/04/17 06:00 PT 11.4 SECONDS (9.6-11.2) H 03/02/17 15:31 INR 1.10 (0.92-1.08) H 03/02/17 15:31 APTT 25.0 SECONDS (23.3-32.5) 03/02/17 15:31 pO2 63 mm/Hg (30-55) H 03/02/17 18:36 VBG pH 7.42 (7.32-7.43) 03/02/17 18:36 VBG pCO2 40 mmHg (40-60) 03/02/17 18:36 VBG HCO3 25.8 mmol/L 03/02/17 18:36 VBG Total CO2 27.1 mmol/L (22-28) 03/02/17 18:36 VBG O2 Sat (Calc) 95.2 % (40-65) H 03/02/17 18:36 VBG Base Excess 1.3 mmol/L (0.0-2.0) 03/02/17 18:36 VBG Potassium 3.8 mmol/L (3.6-5.2) 03/02/17 18:36 Sodium 139.0 mmol/L (132-148) 03/02/17 18:36 Chloride 104.0 mmol/L (98-107) 03/02/17 18:36 Glucose 108 mg/dL (75-110) 03/02/17 18:36 Lactate 0.9 mmol/L (0.7-2.1) 03/02/17 18:36 FiO2 21.0 % 03/02/17 18:36 Blood Gas Comments Vbg 03/02/17 15:29 Crit Value Called To Shaila romero r.n. 03/02/17 15:29 Crit Value Called By Loren 03/02/17 15:29 Crit Value Read Back Y 03/02/17 15:29 Blood Gas Notified Time 1604 03/02/17 15:29 Sodium 139 mmol/l (132-148) 03/04/17 06:00 Potassium 3.5 MMOL/L (3.6-5.0) L 03/04/17 06:00 Chloride 102 mmol/L (98-107) 03/04/17 06:00 Carbon Dioxide 28 mmol/L (22-30) 03/04/17 06:00 Anion Gap 13 (10-20) 03/04/17 06:00 BUN 15 mg/dl (9-20) 03/04/17 06:00 Creatinine 1.1 mg/dL (0.8-1.5) 03/04/17 06:00 Est GFR ( Amer) > 60 03/04/17 06:00 Est GFR (Non-Af Amer) > 60 03/04/17 06:00 POC Glucose (mg/dL) 95 mg/dL (65-110) 03/06/17 05:16 Random Glucose 104 mg/dL (75-110) 03/04/17 06:00 Hemoglobin A1c 4.3 % (4.2-6.5) 03/03/17 09:30 Calcium 9.0 mg/dL (8.4-10.2) 03/04/17 06:00 Total Bilirubin 1.2 mg/dl (0.2-1.3) 03/04/17 06:00 AST 23 U/L (17-59) 03/04/17 06:00 ALT 28 U/L (21-72) 03/04/17 06:00 Alkaline Phosphatase 71 U/L (38-126) 03/04/17 06:00 Total Protein 7.0 G/DL (6.3-8.2) 03/04/17 06:00 Albumin 3.8 g/dL (3.5-5.0) 03/04/17 06:00 Globulin 3.2 gm/dL (2.2-3.9) 03/04/17 06:00 Albumin/Globulin Ratio 1.2 (1.0-2.1) 03/04/17 06:00 Triglycerides 116 mg/DL (0-149) 03/03/17 06:00 Cholesterol 149 mg/dL (0-199) 03/03/17 06:00 LDL Cholesterol Direct 97 mg/dL (0-129) 03/03/17 06:00 HDL Cholesterol 29 MG/DL (30-70) L 03/03/17 06:00 Vitamin B12 290 pg/mL (239-931) 03/03/17 09:30 Thyroxine (T4) 10.1 ug/dl (5.5-11.0) 03/03/17 06:00 Total T3 0.723 nmol/L (1.49-2.60) L 03/03/17 06:00 TSH 3rd Generation 2.67 mIU/ML (0.46-4.68) 03/03/17 06:00 Venous Blood Potassium 3.8 mmol/L (3.6-5.2) 03/02/17 18:36 Urine Opiates Screen Negative (NEGATIVE) 03/03/17 08:00 Urine Methadone Screen Negative (NEGATIVE) 03/03/17 08:00 Ur Barbiturates Screen Negative (NEGATIVE) 03/03/17 08:00 Ur Phencyclidine Scrn Negative (NEGATIVE) 03/03/17 08:00 Ur Amphetamines Screen Negative (NEGATIVE) 03/03/17 08:00 U Benzodiazepines Scrn Negative (NEGATIVE) 03/03/17 08:00 U Oth Cocaine Metabols Negative (NEGATIVE) 03/03/17 08:00 U Cannabinoids Screen Negative (NEGATIVE) 03/03/17 08:00 Alcohol, Quantitative < 10 mg/dl (0-10) 03/02/17 15:31 - Hospital Course Hospital Course: 51yo M with PMHx bipolar disorder and diabetes admitted for presyncope. Cardio Dr. Gallegos c/s and recommended Florinef for orthostatic hypotension as pt had recent cardiac workup with stress test and tild table test with Dr. Diaz and was started on Florinef and midodrine which the pt was not compliant with. Neuro Dr. Grimaldo c/s and agreed with Florinef. PT recommended home for d/c. Pt d/ c with rx and stable at time of d/c. Discharge Exam - Head Exam Head Exam: NORMAL INSPECTION - Eye Exam Eye Exam: Normal appearance - ENT Exam ENT Exam: Mucous Membranes Moist - Neck Exam Neck exam: Normal Inspection - Respiratory Exam Respiratory Exam: NORMAL BREATHING PATTERN - Cardiovascular Exam Cardiovascular Exam: REGULAR RHYTHM - GI/Abdominal Exam GI & Abdominal Exam: Normal Bowel Sounds - Extremities Exam Extremities exam: normal inspection - Neurological Exam Neurological exam: Alert, Oriented x3 - Skin Skin Exam: Dry, Warm Discharge Plan - Discharge Medications Prescriptions: Fludrocortisone [Florinef] 0.1 mg PO DAILY #30 tab Ramipril [Altace] 2.5 mg PO DAILY #30 cap - Follow Up Plan Condition: STABLE Disposition: HOME/ ROUTINE Instructions: Syncope (DC), Chronic Hypertension (DC), Hypotension (DC), Low Sodium Diet (DC)
[2017-03-06 12:05] VITALS: BP 123/77; PULSE 86; TEMP 98.6; O2SAT 97
== END 2017-03-06 14:00 | disposition home health service (06) | DRG 312 ==
LOC: H.ER 15:06 → H.ERHOLD 17:44 → H.TEL 21:00 → OBSVTOIN 03-05 10:37
PROVIDERS: ADMIT Internal Medicine; ATTEND Internal Medicine
PROC: 3E0234Z Introduction of Serum, Toxoid and Vaccine into Muscle, Percutaneous Approach (ICD-10-PCS; principal; 2017-03-02)
DX: I95.1 Orthostatic hypotension (principal); D69.6 Thrombocytopenia, unspecified; I10 Essential (primary) hypertension; E11.9 Type 2 diabetes mellitus without complications; E66.3 Overweight; E78.00 Pure hypercholesterolemia, unspecified; F31.9 Bipolar disorder, unspecified; Z87.891 Personal history of nicotine dependence; Z91.81 History of falling; Z23 Encounter for immunization